=== PATIENT | female | born 1940 | race Caucasian/White ===

== ENCOUNTER → 2018-05-30 | Outpatient (CLI) | payer OTHER | LOC: M WUC 11:03 | DX: S80.01XA Contusion of right knee, initial encounter (principal); S60.212A Contusion of left wrist, initial encounter; S60.222A Contusion of left hand, initial encounter; M17.11 Unilateral primary osteoarthritis, right knee; M25.461 Effusion, right knee; X58.XXXA Exposure to other specified factors, initial encounter; Y92.9 Unspecified place or not applicable | CPT/HCPCS: 73110 ==

== ENCOUNTER 2019-04-29 09:34 | Day surgery (SDC) | payer OTHER ==
[~2019-04-29] VITALS: Ht 160 cm; Wt 71.3 kg
[~2019-04-29 09:34] MED LIST: ALLE180T33 PO; B COTAB3 PO; BALANCED SALT IRRIGATION SOLUTION 500ML BAG (FOR OR EYE MACHINE) As Ordered ONE; CALC600C3 PO; CENT1TAB PO; CRAN450T4 PO; DUOVISC (0.50ML VISCOAT/0.55ML PROVISC) OPHTH KIT As Ordered ONE; ECOT81TA5 PO; GABA-845 PO; IMIT100T PO; LASI20TA3 PO; LIDOCAINE 0.75%/EPINEPHRINE 0.025% IN BSS 1ML SYR INTRACAMERAL (OR ONLY) As Ordered ONE; LOSA50TA5 PO; MELO15TA28 PO; METO200T28 PO; MIDAZOLAM INJ 2 MG/2 ML VIAL (J2250) As Ordered ONE; OFLOXACIN 0.3 % (OCUFLOX) OPTH SOL 5ML OD ONE; PANT40TA3 PO; PHENYLEPHRINE 2.5% OPHTH SOL 2ML OD ONE; POVIDONE-IODINE 5% OPHTH PREP SOL 30ML As Ordered ONE; PROPARACAINE 0.5% OPHTH SOL 15ML OD ONE; SIMV40TA20 PO; TROPICAMIDE 1% OPHTH SOLN 2ML OD ONE; VITA-157 PO; fentaNYL 100 MCG/2 ML INJECTION (J3010) As Ordered ONE
[2019-04-29 12:00] VITALS: BP 148/78
--- NOTE | 2019-04-30 20:43 | RO ---
DATE OF PROCEDURE: 04/29/2019 PREOPERATIVE DIAGNOSIS: 1. Visually significant nuclear sclerotic cataract right eye. POSTOPERATIVE DIAGNOSIS: 1. Visually significant nuclear sclerotic cataract right eye. PROCEDURE: 1. Cataract extraction with use of phacoemulsification and placement of intraocular lens, [id number], 23.5 D, right eye. 2. History of vitreous hemorrhage and pars plana vitrectomy SURGEON: Brian Anderson DO MOTTLER MACHINE FEEDER: None. ANESTHESIA: Local with monitored anesthesia care (MAC). COMPLICATIONS: None. POSTOPERATIVE CONDITION: Stable. INDICATIONS FOR SURGERY: 1. Blurred vision affecting patients activities of daily living. DESCRIPTION OF PROCEDURE: The patient was seen in the preoperative area and properly identified. The correct operative eye was identified and marked. The patient received topical anesthetic, antibiotics, and topical dilating drops. The patient was then transferred to the operating room. The correct side was re-identified, and a time-out was performed. The eye was prepped and draped in a sterile fashion. The eyelids were isolated with Tegaderm tape, and the lids were held open with an adjustable speculum. A 1.0 mm paracentesis incision was made. Intraocular preservative-free Shugarcaine was then injected into the anterior chamber. Viscoelastic was then injected into the anterior chamber through the paracentesis. Using a 2.4 mm sharp-tipped keratome, the anterior chamber was entered via a temporal clear cornea incision. A continuous curvilinear capsulorrhexis was created with Utrata forceps. Hydrodissection was performed with balanced salt solution (BSS) on a blunt cannula until the nucleus was able to rotate freely. The crystalline lens was phacoemulsified and aspirated. Irrigation/aspiration was used to remove the cortical material. Cohesive viscoelastic was placed into the capsular bag to deepen it. The implant was placed into the capsular bag and allowed to unfold. Placement was confirmed by visualizing the anterior capsulorrhexis. Irrigation/aspiration was used to remove the viscoelastic. During removal of the viscoelastic there was evidence of superior zonular weakness and slight inferior shift of the intraocular implant. Careful inspection revealed an intact capsular bag and no vitreous loss. Due to the degree of zonular loss, the decision was made to not place a capsular tension ring. The clear corneal incision was hydrated with BSS on a blunt cannula. The lens was well positioned. The incisions were then tested for leaks and found to be negative. The eye was then palpated for appropriate pressure and adjusted accordingly with BSS. The eyelid speculum was then carefully removed. A shield was placed over the eye. The patient tolerated the procedure well and was discharged to the recovery unit in a stable condition. LEATHA
== END 2019-04-29 12:17 | disposition home or self-care (01) ==
LOC: M SDC 09:34
PROVIDERS: ATTEND Ophthalmology
DX: H25.11 Age-related nuclear cataract, right eye (principal); I10 Essential (primary) hypertension; E78.5 Hyperlipidemia, unspecified; E03.9 Hypothyroidism, unspecified; K21.9 Gastro-esophageal reflux disease without esophagitis; N18.3 Chronic kidney disease, stage 3 (moderate); Z79.899 Other long term (current) drug therapy; Z88.0 Allergy status to penicillin
CPT/HCPCS: 66984; J2250; J3010; L8699; V2632

== ENCOUNTER 2021-05-21 13:00 | Emergency (ER) | payer OTHER ==
[~2021-05-21] VITALS: Ht 160 cm; Wt 73.6 kg
[~2021-05-21 13:00] MED LIST changes: -BALANCED SALT IRRIGATION SOLUTION 500ML BAG (FOR OR EYE MACHINE) As Ordered ONE; -DUOVISC (0.50ML VISCOAT/0.55ML PROVISC) OPHTH KIT As Ordered ONE; +GABA-283 PO; -GABA-845 PO; -LIDOCAINE 0.75%/EPINEPHRINE 0.025% IN BSS 1ML SYR INTRACAMERAL (OR ONLY) As Ordered ONE; -MIDAZOLAM INJ 2 MG/2 ML VIAL (J2250) As Ordered ONE; -OFLOXACIN 0.3 % (OCUFLOX) OPTH SOL 5ML OD ONE; +PANT40TA29 PO; -PANT40TA3 PO; -PHENYLEPHRINE 2.5% OPHTH SOL 2ML OD ONE; -POVIDONE-IODINE 5% OPHTH PREP SOL 30ML As Ordered ONE; -PROPARACAINE 0.5% OPHTH SOL 15ML OD ONE; -TROPICAMIDE 1% OPHTH SOLN 2ML OD ONE; -VITA-157 PO; +VITAE40CA PO; -fentaNYL 100 MCG/2 ML INJECTION (J3010) As Ordered ONE
[2021-05-21 13:01] VITALS: BP 164/73
== END 2021-05-21 18:20 | disposition left against medical advice (07) ==
LOC: M ED 13:00
DX: Z53.29 Procedure and treatment not carried out because of patient's decision for other reasons (principal)

== ENCOUNTER → 2021-05-22 | Outpatient (CLI) | payer OTHER | LOC: M WUC 08:55 | PROVIDERS: ATTEND Physician Assistant Medical | DX: M54.5 Low back pain (principal); M25.511 Pain in right shoulder; M25.551 Pain in right hip; M25.561 Pain in right knee; M51.26 Other intervertebral disc displacement, lumbar region ==

== ENCOUNTER → 2023-03-31 | Outpatient (CLI) | payer OTHER | LOC: M WUC 08:45 | DX: M43.16 Spondylolisthesis, lumbar region (principal) ==